=== PATIENT | female | born 1940 | race Two or more races ===

== ENCOUNTER 2022-08-21 11:13 | Inpatient (IN) | payer MEDICARE, MEDICAID ==
[~2022-08-21] VITALS: Ht 144.8 cm; Wt 63.5 kg
[2022-08-21] MEDS ORDERED: DILTIAZEM HCL 5MG/ML 5ML VIAL IV ONE (12:00)
[2022-08-21 12:26] LABS: BASOPHILS % 0.7 % (0.0-2.0); EOSINOPHILS % 1.1 % (0.0-5.0); HEMATOCRIT. 35.5 % (36.0-48.0); HEMOGLOBIN. 11.8 g/dL (12.0-16.0); LYMPHOCYTES % 12.7 % (20.0-50.0); MEAN CORPUSCULAR HEMOGLOBIN 30.3 pg (28.0-32.0); MEAN CORPUSCULAR VOLUME 91.5 fL (81.0-99.0); MEAN PLATELET VOLUME 8.6 fl (7.4-10.4); MONOCYTES % 4.5 % (2.0-8.0); PLATELET 304 x1000/uL (130-400); RED BLOOD CELL COUNT 3.88 mill/uL (4.2-5.4); RED CELL DISTRIBUTION WIDTH 13.8 % (11.6-14.6)
[2022-08-21 12:48] LABS: CHLORIDE 104 mEq/L (98-107)
[2022-08-21] MEDS ORDERED: ENOXAPARIN 80MG/0.8ML SYR SUBCUT NR (13:45)
[2022-08-21] MEDS ORDERED: ASPIRIN 325MG EC TABLET PO NR (13:45)
[2022-08-21] MEDS ORDERED: DILTIAZEM HCL 5MG/ML 5ML VIAL IV NR (13:45)
[2022-08-21] MEDS ORDERED: DILTIAZEM HCL 125 MG in DEXT 5% WATER 100 ML IV ONE (14:45)
[2022-08-21] MEDS ORDERED: DILTIAZEM HCL 125 MG in DEXT 5% WATER 100 ML IV SCH (16:30)
[2022-08-21] MEDS ORDERED: ZOLPIDEM TARTRATE 5MG TABLET PO PRN (22:45)
[2022-08-21] MEDS ORDERED: ONDANSETRON HCL 4MG/2ML INJ IV PRN (22:45)
[2022-08-21] MEDS ORDERED: ACETAMINOPHEN 325MG TABLET PO PRN (22:45)
[2022-08-21] MEDS ORDERED: MAGNESIUM/ALUMINUM HYDROXIDE/SIMETHICONE 30ML UDC PO PRN (22:45)
[2022-08-21] MEDS ORDERED: DEXTROSE 50% WATER 50ML SYRINGE IV PRN (22:45)
[2022-08-21 23:00] VITALS: BP_SYST 180; BP_SYST 183; BP_DIAS 79; BP_DIAS 80
[2022-08-21 23:15] VITALS: BP 180/80
[2022-08-21 23:30] VITALS: BP 182/74
[2022-08-21] MEDS: CLONIDINE 0.1MG TABLET PO PRN (23:39)
[2022-08-21 23:40] LABS: PROTHROMBIN TIME 10.9 sec (9.6-11.0)
[2022-08-21 23:45] VITALS: BP 209/95
[2022-08-22] VITALS (92 sets, daily range): BP systolic 116–186; BP diastolic 41–142
[2022-08-22] MEDS ORDERED: CHOL2000 (00:11)
[2022-08-22] MEDS ORDERED: ATOR40TA70 MT (00:11)
[2022-08-22] MEDS ORDERED: OMEP20CA14 MT (00:11)
[2022-08-22] MEDS ORDERED: METF-873 MT (00:11)
[2022-08-22] MEDS ORDERED: LEVO112T7 MT (00:11)
[2022-08-22] MEDS ORDERED: LOSA100T32 MT (00:11)
[2022-08-22] MEDS ORDERED: HYDR100T26 MT (00:11)
[2022-08-22] MEDS ORDERED: AMLO5TAB88 MT (00:11)
[2022-08-22] MEDS ORDERED: GLIP5TAB12 MT (00:11)
[2022-08-22] MEDS ORDERED: CYAN-33 MT (00:11)
[2022-08-22 01:03] LABS: *AMPHETAMINES SCREEN URINE NEGATIVE (NEGATIVE); *BARBITURATES SCREEN URINE NEGATIVE (NEGATIVE); *BENZODIAZEPINES SCREEN URINE NEGATIVE (NEGATIVE); *COCAINE SCREEN URINE NEGATIVE (NEGATIVE); CANNABINOID URINE SCREEN NEGATIVE (NEGATIVE); METHADONE URINE SCREEN NEGATIVE (NEGATIVE); OPIATES URINE SCREEN NEGATIVE (NEGATIVE); PHENCYCLIDINE URINE SCREEN NEGATIVE (NEGATIVE)
[2022-08-22] MEDS: DILTIAZEM HCL 90MG TABLET PO SCH ×2 (05:08→13:31)
[2022-08-22] MEDS: SODIUM CHLORIDE 0.9% INJ 3ML FLUSH IVF SCH ×3 (05:08→22:25)
[2022-08-22 05:46] LABS: BASOPHILS % 1.3 % (0.0-2.0); EOSINOPHILS % 2.9 % (0.0-5.0); HEMATOCRIT. 26.6 % (36.0-48.0); HEMOGLOBIN. 9.1 g/dL (12.0-16.0); LYMPHOCYTES % 31.8 % (20.0-50.0); MEAN CORPUSCULAR HEMOGLOBIN 30.9 pg (28.0-32.0); MEAN CORPUSCULAR VOLUME 90.3 fL (81.0-99.0); MEAN PLATELET VOLUME 8.7 fl (7.4-10.4); MONOCYTES % 6.8 % (2.0-8.0); NEUTROPHILS % 57.2 % (40.0-76.0); PLATELET 237 x1000/uL (130-400); RED BLOOD CELL COUNT 2.94 mill/uL (4.2-5.4); RED CELL DISTRIBUTION WIDTH 13.8 % (11.6-14.6)
[2022-08-22 05:58] LABS: INR 1.1; PROTHROMBIN TIME 11.5 sec (9.6-11.0)
[2022-08-22] MEDS: CLONIDINE 0.1MG TABLET PO PRN ×2 (05:59→18:40)
[2022-08-22] MEDS ORDERED: ENOXAPARIN 60MG/0.6ML SYR SUBCUT SCH (06:00)
[2022-08-22] MEDS ORDERED: IOHEXOL-350 100 ML BOTTLE ONE (06:22)
[2022-08-22] MEDS: BLOOD SUGAR DIAGNOSTIC STRIP TEST SCH ×4 (07:49→21:38)
[2022-08-22] MEDS: INSULIN LISPRO 100 UNITS/ML SUBCUT SCH ×4 (07:49→21:56)
[2022-08-22] MEDS ORDERED: LEVOTHYROXINE SODIUM 100MCG TABLET PO SCH (07:50)
[2022-08-22 08:44] LABS: T4 FREE 1.04 ng/dL (0.76-1.46)
[2022-08-22] MEDS: LOSARTAN POTASSIUM 100 MG TABLET PO SCH (15:09)
[2022-08-22 15:59] LABS: CREATINE KINASE MB FRACTION 3.1 ng/mL (0.5-3.6)
[2022-08-22] MEDS: HYDRALAZINE HCL 10MG TABLET PO PRN ×2 (16:26→19:49)
[2022-08-22] MEDS: OMEPRAZOLE 20MG CAPSULE EXTENDED RELEASE PO SCH (21:53)
[2022-08-22] MEDS: HYDRALAZINE HCL 100MG TABLET PO SCH (21:54)
[2022-08-22] MEDS: ATORVASTATIN CALCIUM 40MG TABLET PO SCH (21:55)
[2022-08-22] MEDS: DILTIAZEM HCL 60MG TABLET PO SCH (22:00)
[2022-08-23] VITALS (59 sets, daily range): BP systolic 81–205; BP diastolic 35–123
[2022-08-23 00:07] LABS: CREATINE KINASE MB FRACTION 2.4 ng/mL (0.5-3.6)
[2022-08-23] MEDS: HYDRALAZINE HCL 100MG TABLET PO SCH ×3 (05:40→21:21)
[2022-08-23] MEDS: SODIUM CHLORIDE 0.9% INJ 3ML FLUSH IVF SCH ×3 (05:43→21:14)
[2022-08-23] MEDS: DILTIAZEM HCL 60MG TABLET PO SCH ×3 (05:43→22:00)
[2022-08-23 05:46] LABS: CREATINE KINASE MB FRACTION 1.9 ng/mL (0.5-3.6)
[2022-08-23] MEDS: ENOXAPARIN 60MG/0.6ML SYR SUBCUT SCH (05:47)
[2022-08-23] MEDS: LEVOTHYROXINE SODIUM 125MCG TABLET PO SCH (07:50)
[2022-08-23] MEDS: BLOOD SUGAR DIAGNOSTIC STRIP TEST SCH ×4 (08:01→21:00)
[2022-08-23] MEDS: INSULIN LISPRO 100 UNITS/ML SUBCUT SCH ×4 (08:01→21:20)
[2022-08-23] MEDS: OMEPRAZOLE 20MG CAPSULE EXTENDED RELEASE PO SCH ×2 (08:31→21:20)
[2022-08-23] MEDS: LOSARTAN POTASSIUM 100 MG TABLET PO SCH (08:31)
[2022-08-23] MEDS: HYDRALAZINE HCL 10MG TABLET PO PRN ×2 (08:32→18:34)
[2022-08-23] MEDS ORDERED: LIDOCAINE HCL 1% 20ML VIAL (Pyxis) INJ ONE ×3 (08:43→10:18)
[2022-08-23] MEDS ORDERED: IODIXANOL 320MG/ML 100 ML BOTTLE IV ONE (08:43)
[2022-08-23] MEDS ORDERED: HEPARIN 1000 UNITS/ML 10ML ONE (08:43)
[2022-08-23] MEDS ORDERED: LIDOCAINE HCL/PF 1% 10 MG/ML 5ML VIAL ONE (08:46)
[2022-08-23] MEDS ORDERED: FENTANYL CITRATE/PF 50MCG/ML 2ML VIAL ONE (09:03)
[2022-08-23] MEDS ORDERED: MIDAZOLAM HCL 2 MG/2 ML VIAL ONE (09:03)
[2022-08-23] MEDS ORDERED: HYDRALAZINE 20MG/ML VIAL ONE (09:55)
[2022-08-23] MEDS ORDERED: ATROPINE SULFATE 1MG/10ML SYR IV PRN (11:15)
[2022-08-23] MEDS: ACETAMINOPHEN 325MG TABLET PO PRN (13:14)
[2022-08-23] MEDS: CLONIDINE 0.1MG TABLET PO PRN ×2 (13:14→18:34)
[2022-08-23] MEDS: NITROGLYCERIN 50MG PREMIX 250 ML IV PRN (15:06)
[2022-08-23] MEDS ORDERED: ACETAMINOPHEN 325MG TABLET PO PRN (18:45)
[2022-08-23] MEDS: ATORVASTATIN CALCIUM 40MG TABLET PO SCH (21:21)
[2022-08-24] VITALS (98 sets, daily range): BP systolic 102–199; BP diastolic 23–124
[2022-08-24] MEDS: SODIUM CHLORIDE 0.9% INJ 3ML FLUSH IVF SCH ×3 (05:42→22:00)
[2022-08-24] MEDS: DILTIAZEM HCL 60MG TABLET PO SCH ×3 (05:42→22:00)
[2022-08-24] MEDS: HYDRALAZINE HCL 100MG TABLET PO SCH ×3 (05:46→22:23)
[2022-08-24] MEDS: ENOXAPARIN 60MG/0.6ML SYR SUBCUT SCH (05:47)
[2022-08-24 06:40] LABS: BASOPHILS % 0.3 % (0.0-2.0); EOSINOPHILS % 1.3 % (0.0-5.0); HEMATOCRIT. 29.5 % (36.0-48.0); HEMOGLOBIN. 10.2 g/dL (12.0-16.0); LYMPHOCYTES % 17.9 % (20.0-50.0); MEAN CORPUSCULAR HEMOGLOBIN 31.3 pg (28.0-32.0); MEAN CORPUSCULAR VOLUME 90.7 fL (81.0-99.0); MEAN PLATELET VOLUME 8.8 fl (7.4-10.4); MONOCYTES % 5.8 % (2.0-8.0); NEUTROPHILS % 74.7 % (40.0-76.0); PLATELET 253 x1000/uL (130-400); RED BLOOD CELL COUNT 3.25 mill/uL (4.2-5.4); RED CELL DISTRIBUTION WIDTH 13.7 % (11.6-14.6)
[2022-08-24] MEDS: BLOOD SUGAR DIAGNOSTIC STRIP TEST SCH ×4 (07:42→20:41)
[2022-08-24] MEDS: INSULIN LISPRO 100 UNITS/ML SUBCUT SCH ×4 (08:20→20:41)
[2022-08-24] MEDS: LEVOTHYROXINE SODIUM 125MCG TABLET PO SCH (09:02)
[2022-08-24] MEDS: LOSARTAN POTASSIUM 100 MG TABLET PO SCH (09:02)
[2022-08-24] MEDS: OMEPRAZOLE 20MG CAPSULE EXTENDED RELEASE PO SCH ×2 (09:04→20:38)
[2022-08-24] MEDS: CLONIDINE 0.1MG TABLET PO SCH ×2 (09:48→20:39)
[2022-08-24] MEDS: ATORVASTATIN CALCIUM 40MG TABLET PO SCH (20:39)
[2022-08-25] VITALS (81 sets, daily range): BP systolic 70–185; BP diastolic 18–145
[2022-08-25] MEDS: SODIUM CHLORIDE 0.9% INJ 3ML FLUSH IVF SCH ×3 (05:02→22:17)
[2022-08-25] MEDS: HYDRALAZINE HCL 100MG TABLET PO SCH ×3 (05:06→22:15)
[2022-08-25] MEDS: ENOXAPARIN 60MG/0.6ML SYR SUBCUT SCH (05:06)
[2022-08-25] MEDS: DILTIAZEM HCL 60MG TABLET PO SCH ×3 (05:09→22:00)
[2022-08-25] MEDS: ACETAMINOPHEN 325MG TABLET PO PRN (05:09)
[2022-08-25 05:58] LABS: BASOPHILS % 0.5 % (0.0-2.0); HEMATOCRIT. 29.4 % (36.0-48.0); HEMOGLOBIN. 10.2 g/dL (12.0-16.0); MEAN CORPUSCULAR HEMOGLOBIN 31.4 pg (28.0-32.0); MEAN CORPUSCULAR VOLUME 90.4 fL (81.0-99.0); MEAN PLATELET VOLUME 8.9 fl (7.4-10.4); MONOCYTES % 6.4 % (2.0-8.0); NEUTROPHILS % 67.1 % (40.0-76.0); PLATELET 212 x1000/uL (130-400); RED BLOOD CELL COUNT 3.25 mill/uL (4.2-5.4); RED CELL DISTRIBUTION WIDTH 13.7 % (11.6-14.6)
[2022-08-25] MEDS: LEVOTHYROXINE SODIUM 125MCG TABLET PO SCH (08:27)
[2022-08-25] MEDS: OMEPRAZOLE 20MG CAPSULE EXTENDED RELEASE PO SCH ×2 (08:27→22:11)
[2022-08-25] MEDS: CLONIDINE 0.1MG TABLET PO SCH ×3 (08:28→18:28)
[2022-08-25] MEDS: LOSARTAN POTASSIUM 100 MG TABLET PO SCH (08:28)
[2022-08-25] MEDS ORDERED: FUROSEMIDE 40MG/4ML VIAL IVP NR (08:45)
[2022-08-25] MEDS ORDERED: MAGNESIUM 4 G PREMIX 100 ML IV ONE (10:00)
[2022-08-25] MEDS: BLOOD SUGAR DIAGNOSTIC STRIP TEST SCH ×3 (11:39→23:45)
[2022-08-25] MEDS: INSULIN LISPRO 100 UNITS/ML SUBCUT SCH ×2 (11:49→18:29)
[2022-08-25] MEDS ORDERED: EPOETIN ALFA-EPBX 10,000 UNIT/ML VIAL SUBCUT NR (21:00)
[2022-08-25] MEDS: NITROGLYCERIN 50MG PREMIX 250 ML IV PRN (21:04)
[2022-08-25] MEDS: ATORVASTATIN CALCIUM 40MG TABLET PO SCH (22:11)
[2022-08-26] VITALS (97 sets, daily range): BP systolic 109–204; BP diastolic 39–110
[2022-08-26] MEDS: INSULIN LISPRO 100 UNITS/ML SUBCUT SCH ×4 (00:13→17:18)
[2022-08-26] MEDS: BLOOD SUGAR DIAGNOSTIC STRIP TEST SCH ×4 (05:45→23:45)
[2022-08-26] MEDS: SODIUM CHLORIDE 0.9% INJ 3ML FLUSH IVF SCH ×3 (06:00→22:00)
[2022-08-26] MEDS: DILTIAZEM HCL 60MG TABLET PO SCH ×3 (06:00→22:00)
[2022-08-26] MEDS: HYDRALAZINE HCL 100MG TABLET PO SCH ×3 (06:32→20:55)
[2022-08-26] MEDS: ENOXAPARIN 60MG/0.6ML SYR SUBCUT SCH (06:35)
[2022-08-26] MEDS: CLONIDINE 0.1MG TABLET PO SCH ×3 (08:44→17:22)
[2022-08-26] MEDS: OMEPRAZOLE 20MG CAPSULE EXTENDED RELEASE PO SCH ×2 (08:44→20:55)
[2022-08-26] MEDS: LEVOTHYROXINE SODIUM 125MCG TABLET PO SCH (08:44)
[2022-08-26] MEDS ORDERED: LOSARTAN POTASSIUM 50 MG TABLET PO SCH (09:00)
[2022-08-26] MEDS: ACETAMINOPHEN 325MG TABLET PO PRN (20:54)
[2022-08-26] MEDS: ATORVASTATIN CALCIUM 40MG TABLET PO SCH (20:54)
[2022-08-26] MEDS: DIPHENHYDRAMINE 50MG/ML VIAL IV PRN (20:55)
[2022-08-27] VITALS (72 sets, daily range): BP systolic 126–194; BP diastolic 48–93
[2022-08-27] MEDS: INSULIN LISPRO 100 UNITS/ML SUBCUT SCH ×5 (00:02→23:56)
[2022-08-27] MEDS: BLOOD SUGAR DIAGNOSTIC STRIP TEST SCH ×4 (05:45→23:53)
[2022-08-27] MEDS: SODIUM CHLORIDE 0.9% INJ 3ML FLUSH IVF SCH ×3 (06:00→22:24)
[2022-08-27] MEDS: DILTIAZEM HCL 60MG TABLET PO SCH (06:00)
[2022-08-27] MEDS: HYDRALAZINE HCL 100MG TABLET PO SCH ×3 (06:59→22:24)
[2022-08-27] MEDS: LEVOTHYROXINE SODIUM 125MCG TABLET PO SCH (08:36)
[2022-08-27] MEDS: OMEPRAZOLE 20MG CAPSULE EXTENDED RELEASE PO SCH ×2 (08:36→20:09)
[2022-08-27] MEDS: CLONIDINE 0.1MG TABLET PO SCH (08:39)
[2022-08-27] MEDS ORDERED: FUROSEMIDE 40MG/4ML VIAL IVP NR (14:00)
[2022-08-27] MEDS: GUAIFENESIN-DM 200MG-20MG/10ML UDC PO PRN (16:10)
[2022-08-27] MEDS: LIDOCAINE 5% PATCH TOP SCH (16:11)
[2022-08-27] MEDS: HYDRALAZINE HCL 10MG TABLET PO PRN (17:51)
[2022-08-27] MEDS ORDERED: METOPROLOL TARTRATE 5MG/5ML VIAL IV NR ×2 (20:00→20:15)
[2022-08-27] MEDS: ATORVASTATIN CALCIUM 40MG TABLET PO SCH (20:09)
[2022-08-27] MEDS: ALLOPURINOL 300 MG TABLET PO SCH (20:09)
[2022-08-27] MEDS ORDERED: AMIODARONE HCL 900 MG in DEXT 5% WATER 482 ML IV PRN (20:15)
[2022-08-27] MEDS ORDERED: ASCORBIC ACID 500 MG TABLET PO SCH (21:00)
[2022-08-27] MEDS ORDERED: DIPHENHYDRAMINE 25MG CAPSULE PO PRN (21:00)
[2022-08-27] MEDS ORDERED: CHLORHEXIDINE GLUCONATE 4% EXTERNAL USE TOP SCH (21:00)
[2022-08-27] MEDS ORDERED: BISACODYL 10MG SUPP PR PRN (21:00)
[2022-08-27] MEDS ORDERED: DOCUSATE SODIUM 100MG CAPSULE PO SCH (21:00)
[2022-08-28] VITALS (48 sets, daily range): BP systolic 122–203; BP diastolic 45–89
[2022-08-28] MEDS: CLONIDINE 0.1MG TABLET PO PRN (03:44)
[2022-08-28] MEDS: INSULIN LISPRO 100 UNITS/ML SUBCUT SCH ×3 (06:00→17:01)
[2022-08-28] MEDS: BLOOD SUGAR DIAGNOSTIC STRIP TEST SCH ×4 (06:09→23:56)
[2022-08-28 06:10] LABS: BASOPHILS % 0.6 % (0.0-2.0); EOSINOPHILS % 3.3 % (0.0-5.0); HEMATOCRIT. 36.4 % (36.0-48.0); HEMOGLOBIN. 12.4 g/dL (12.0-16.0); LYMPHOCYTES % 23.5 % (20.0-50.0); MEAN CORPUSCULAR HEMOGLOBIN 30.9 pg (28.0-32.0); MEAN CORPUSCULAR VOLUME 90.8 fL (81.0-99.0); MEAN PLATELET VOLUME 9.1 fl (7.4-10.4); MONOCYTES % 6.7 % (2.0-8.0); NEUTROPHILS % 65.9 % (40.0-76.0); PLATELET 203 x1000/uL (130-400); RED BLOOD CELL COUNT 4.01 mill/uL (4.2-5.4); RED CELL DISTRIBUTION WIDTH 14.6 % (11.6-14.6)
[2022-08-28] MEDS: CHLORHEXIDINE GLUCONATE 4% EXTERNAL USE TOP SCH ×2 (06:11→08:24)
[2022-08-28] MEDS: ALLOPURINOL 300 MG TABLET PO SCH (06:11)
[2022-08-28] MEDS: SODIUM CHLORIDE 0.9% INJ 3ML FLUSH IVF SCH ×3 (06:12→21:06)
[2022-08-28] MEDS: HYDRALAZINE HCL 10MG TABLET PO PRN (06:17)
[2022-08-28] MEDS: LEVOTHYROXINE SODIUM 125MCG TABLET PO SCH (07:33)
[2022-08-28] MEDS: OMEPRAZOLE 20MG CAPSULE EXTENDED RELEASE PO SCH ×2 (07:33→21:05)
[2022-08-28] MEDS: HYDRALAZINE HCL 100MG TABLET PO SCH ×3 (08:40→16:44)
[2022-08-28] MEDS: CLONIDINE 0.1MG TABLET PO SCH ×3 (08:40→16:45)
[2022-08-28] MEDS: LIDOCAINE 5% PATCH TOP SCH (08:41)
[2022-08-28] MEDS ORDERED: FENTANYL CITRATE/PF 50MCG/ML 2ML VIAL ONE (13:51)
[2022-08-28] MEDS ORDERED: LIDOCAINE HCL/PF 1% 10 MG/ML 5ML VIAL ONE (13:51)
[2022-08-28] MEDS ORDERED: MIDAZOLAM HCL 2 MG/2 ML VIAL ONE (13:51)
[2022-08-28] MEDS ORDERED: HEPARIN 1000 UNITS/ML 10ML ONE (13:51)
[2022-08-28] MEDS ORDERED: IODIXANOL 320MG/ML 100 ML BOTTLE IV ONE (14:22)
[2022-08-28] MEDS ORDERED: HYDRALAZINE 20MG/ML VIAL ONE (15:12)
[2022-08-28] MEDS ORDERED: AMIODARONE HCL 50MG/ML 3ML VIAL IV ONE (15:46)
[2022-08-28] MEDS ORDERED: CLOPIDOGREL 75MG TABLET ONE (15:59)
[2022-08-28] MEDS ORDERED: SODIUM CHLORIDE 0.45% 1,000 ML IV SCH (16:15)
[2022-08-28] MEDS: ACETAMINOPHEN 325MG TABLET PO PRN (16:57)
[2022-08-28] MEDS: ATORVASTATIN CALCIUM 40MG TABLET PO SCH (21:06)
[2022-08-29] VITALS (28 sets, daily range): BP systolic 94–190; BP diastolic 39–124
[2022-08-29] MEDS: HYDRALAZINE HCL 10MG TABLET PO PRN (00:32)
[2022-08-29] MEDS: CLONIDINE 0.1MG TABLET PO PRN (03:39)
[2022-08-29] MEDS: SODIUM CHLORIDE 0.9% INJ 3ML FLUSH IVF SCH ×3 (05:43→22:01)
[2022-08-29] MEDS: INSULIN LISPRO 100 UNITS/ML SUBCUT SCH ×5 (05:43→17:21)
[2022-08-29] MEDS: BLOOD SUGAR DIAGNOSTIC STRIP TEST SCH ×3 (05:43→17:04)
[2022-08-29] MEDS: CLONIDINE 0.1MG TABLET PO SCH ×3 (09:16→22:00)
[2022-08-29] MEDS: LIDOCAINE 5% PATCH TOP SCH (09:16)
[2022-08-29] MEDS: OMEPRAZOLE 20MG CAPSULE EXTENDED RELEASE PO SCH ×2 (09:17→22:00)
[2022-08-29] MEDS: LEVOTHYROXINE SODIUM 125MCG TABLET PO SCH (09:17)
[2022-08-29] MEDS: ACETAMINOPHEN 325MG TABLET PO PRN ×2 (09:17→22:03)
[2022-08-29] MEDS: CLOPIDOGREL 75MG TABLET PO SCH (09:18)
[2022-08-29] MEDS: HYDRALAZINE HCL 100MG TABLET PO SCH ×3 (09:18→22:00)
[2022-08-29] MEDS: NIFEDIPINE XL 90MG TAB PO SCH (10:15)
[2022-08-29] MEDS ORDERED: HYDRALAZINE HCL 10MG TABLET PO PRN (11:30)
[2022-08-29] MEDS: NITROGLYCERIN 0.4MG TABLET SL SL PRN ×2 (12:29→12:37)
[2022-08-29] MEDS ORDERED: METOPROLOL TARTRATE 5MG/5ML VIAL IV SCH (12:30)
[2022-08-29] MEDS: APIXABAN 2.5 MG TABLET PO SCH (17:20)
[2022-08-29] MEDS: GUAIFENESIN-DM 200MG-20MG/10ML UDC PO PRN (17:20)
[2022-08-29] MEDS ORDERED: AMIODARONE HCL 200 MG TABLET PO SCH (21:30)
[2022-08-29] MEDS: ATORVASTATIN CALCIUM 40MG TABLET PO SCH (21:59)
[2022-08-30] VITALS (11 sets, daily range): BP systolic 95–185; BP diastolic 49–79
[2022-08-30] MEDS: BLOOD SUGAR DIAGNOSTIC STRIP TEST SCH ×4 (00:29→18:27)
[2022-08-30] MEDS: INSULIN LISPRO 100 UNITS/ML SUBCUT SCH ×4 (00:29→18:42)
[2022-08-30] MEDS ORDERED: HYDROCODONE/ACETAMINOPHEN 10/325MG TABLET PO PRN (01:15)
[2022-08-30] MEDS ORDERED: NALOXONE HCL 0.4MG/ML VIAL IV PRN (01:15)
[2022-08-30] MEDS: HYDRALAZINE HCL 100MG TABLET PO SCH ×4 (07:41→21:24)
[2022-08-30] MEDS: OMEPRAZOLE 20MG CAPSULE EXTENDED RELEASE PO SCH ×2 (07:42→21:23)
[2022-08-30] MEDS: CLONIDINE 0.1MG TABLET PO SCH ×4 (07:42→21:27)
[2022-08-30] MEDS ORDERED: METOPROLOL TARTRATE 5MG/5ML VIAL IV SCH (08:00)
[2022-08-30] MEDS ORDERED: DIGOXIN 500MCG/2ML AMP IV SCH (08:00)
[2022-08-30] MEDS: LEVOTHYROXINE SODIUM 125MCG TABLET PO SCH (08:02)
[2022-08-30] MEDS: SODIUM CHLORIDE 0.9% INJ 3ML FLUSH IVF SCH ×3 (08:10→21:24)
[2022-08-30] MEDS: CLOPIDOGREL 75MG TABLET PO SCH (08:29)
[2022-08-30] MEDS: APIXABAN 2.5 MG TABLET PO SCH ×2 (08:29→18:36)
[2022-08-30] MEDS: NIFEDIPINE XL 90MG TAB PO SCH (09:00)
[2022-08-30] MEDS: AMIODARONE HCL 900 MG in DEXT 5% WATER 500 ML IV SCH (10:54)
[2022-08-30] MEDS: CLONIDINE 0.1MG TABLET PO PRN (18:43)
[2022-08-30] MEDS: ATORVASTATIN CALCIUM 40MG TABLET PO SCH (21:24)
[2022-08-30] MEDS: ACETAMINOPHEN 325MG TABLET PO PRN (22:00)
[2022-08-31] VITALS (9 sets, daily range): BP systolic 116–193; BP diastolic 63–97
[2022-08-31] MEDS: INSULIN LISPRO 100 UNITS/ML SUBCUT SCH ×4 (01:04→17:58)
[2022-08-31] MEDS: CLONIDINE 0.1MG TABLET PO PRN ×2 (01:08→10:02)
[2022-08-31] MEDS: HYDRALAZINE HCL 100MG TABLET PO SCH ×4 (05:34→22:26)
[2022-08-31] MEDS: SODIUM CHLORIDE 0.9% INJ 3ML FLUSH IVF SCH ×3 (05:34→22:00)
[2022-08-31] MEDS: CLONIDINE 0.1MG TABLET PO SCH ×4 (05:34→22:27)
[2022-08-31] MEDS: BLOOD SUGAR DIAGNOSTIC STRIP TEST SCH ×4 (05:34→17:58)
[2022-08-31] MEDS: LEVOTHYROXINE SODIUM 125MCG TABLET PO SCH (05:59)
[2022-08-31] MEDS: OMEPRAZOLE 20MG CAPSULE EXTENDED RELEASE PO SCH ×3 (05:59→22:04)
[2022-08-31] MEDS: AMIODARONE HCL 900 MG in DEXT 5% WATER 500 ML IV SCH (06:52)
[2022-08-31] MEDS: NIFEDIPINE XL 90MG TAB PO SCH (08:27)
[2022-08-31] MEDS: LIDOCAINE 5% PATCH TOP SCH ×2 (08:28→08:34)
[2022-08-31] MEDS: APIXABAN 2.5 MG TABLET PO SCH ×2 (08:32→17:56)
[2022-08-31] MEDS: CLOPIDOGREL 75MG TABLET PO SCH (08:32)
[2022-08-31] MEDS: AMIODARONE HCL 200 MG TABLET PO SCH ×2 (21:00→22:03)
[2022-08-31] MEDS: ATORVASTATIN CALCIUM 40MG TABLET PO SCH ×2 (21:00→22:04)
[2022-08-31] MEDS: DIPHENHYDRAMINE 50MG/ML VIAL IV PRN (22:26)
[2022-08-31] MEDS ORDERED: LORAZEPAM 2MG/ML CPJ IV PRN (23:00)
[2022-08-31] MEDS ORDERED: AMIODARONE HCL 900 MG in DEXT 5% WATER 482 ML IV PRN (23:15)
[2022-09-01] VITALS (11 sets, daily range): BP systolic 142–175; BP diastolic 63–117
[2022-09-01] MEDS: CLONIDINE 0.1MG TABLET PO SCH ×3 (06:00→22:21)
[2022-09-01] MEDS: INSULIN LISPRO 100 UNITS/ML SUBCUT SCH ×5 (06:00→23:26)
[2022-09-01] MEDS: SODIUM CHLORIDE 0.9% INJ 3ML FLUSH IVF SCH ×3 (06:00→22:21)
[2022-09-01] MEDS: HYDRALAZINE HCL 100MG TABLET PO SCH ×3 (06:00→22:21)
[2022-09-01] MEDS: BLOOD SUGAR DIAGNOSTIC STRIP TEST SCH ×4 (06:00→18:06)
[2022-09-01] MEDS ORDERED: HYDRALAZINE 20MG/ML VIAL IV PRN (07:15)
[2022-09-01] MEDS: AMIODARONE HCL 200 MG TABLET PO SCH ×2 (09:00→21:00)
[2022-09-01] MEDS: LEVOTHYROXINE SODIUM 125MCG TABLET PO SCH (09:40)
[2022-09-01] MEDS: CLOPIDOGREL 75MG TABLET PO SCH (09:40)
[2022-09-01] MEDS: APIXABAN 2.5 MG TABLET PO SCH ×2 (09:47→18:19)
[2022-09-01] MEDS: OMEPRAZOLE 20MG CAPSULE EXTENDED RELEASE PO SCH ×2 (09:47→22:06)
[2022-09-01] MEDS: NIFEDIPINE XL 90MG TAB PO SCH (09:47)
[2022-09-01] MEDS: LIDOCAINE 5% PATCH TOP SCH (09:48)
[2022-09-01] MEDS: ATORVASTATIN CALCIUM 40MG TABLET PO SCH (22:05)
[2022-09-02] VITALS (10 sets, daily range): BP systolic 133–174; BP diastolic 53–75
[2022-09-02] MEDS: ACETAMINOPHEN 325MG TABLET PO PRN (03:18)
[2022-09-02] MEDS: SODIUM CHLORIDE 0.9% INJ 3ML FLUSH IVF SCH ×2 (05:05→14:00)
[2022-09-02] MEDS: CLONIDINE 0.1MG TABLET PO SCH ×2 (05:24→16:41)
[2022-09-02] MEDS: HYDRALAZINE HCL 100MG TABLET PO SCH ×2 (05:24→16:41)
[2022-09-02] MEDS: INSULIN LISPRO 100 UNITS/ML SUBCUT SCH ×3 (05:31→18:42)
[2022-09-02] MEDS: BLOOD SUGAR DIAGNOSTIC STRIP TEST SCH ×4 (05:31→18:24)
[2022-09-02] MEDS: LEVOTHYROXINE SODIUM 125MCG TABLET PO SCH (07:30)
[2022-09-02] MEDS: CLOPIDOGREL 75MG TABLET PO SCH (09:00)
[2022-09-02] MEDS: APIXABAN 2.5 MG TABLET PO SCH ×2 (09:00→16:40)
[2022-09-02] MEDS: NIFEDIPINE XL 90MG TAB PO SCH (09:00)
[2022-09-02] MEDS: LIDOCAINE 5% PATCH TOP SCH (10:11)
[2022-09-02] MEDS: OMEPRAZOLE 20MG CAPSULE EXTENDED RELEASE PO SCH (10:11)
[2022-09-02] MEDS: AMIODARONE HCL 200 MG TABLET PO SCH (10:14)
[2022-09-02 12:27] LABS: CLARITY URINE TURBID (CLEAR); COLOR URINE YELLOW (YELLOW); KETONES URINE 1+ (NEGATIVE); LEUKOCYTE ESTERASE URINE 3+ (NEGATIVE); NITRITE URINE NEGATIVE (NEGATIVE); OCCULT BLOOD URINE NEGATIVE (NEGATIVE); PH URINE 5.5 (4.5-8.0); PROTEIN URINE 4+ (NEGATIVE); SPECIFIC GRAVITY URINE 1.018 (1.005-1.030)
[2022-09-02 16:10] LABS: BASOPHILS % 0.7 % (0.0-2.0); EOSINOPHILS % 2.3 % (0.0-5.0); HEMATOCRIT. 36.1 % (36.0-48.0); HEMOGLOBIN. 12.2 g/dL (12.0-16.0); LYMPHOCYTES % 10.3 % (20.0-50.0); MEAN CORPUSCULAR HEMOGLOBIN 30.7 pg (28.0-32.0); MEAN CORPUSCULAR VOLUME 90.5 fL (81.0-99.0); MONOCYTES % 5.1 % (2.0-8.0); NEUTROPHILS % 81.6 % (40.0-76.0); PLATELET 312 x1000/uL (130-400); RED BLOOD CELL COUNT 3.98 mill/uL (4.2-5.4); RED CELL DISTRIBUTION WIDTH 14.5 % (11.6-14.6)
[2022-09-02 16:12] LABS: CHLORIDE 97 mEq/L (98-107)
[2022-09-02] MEDS ORDERED: AMIODARONE HCL 200 MG TABLET PO SCH (16:15)
== END 2022-09-02 20:06 | disposition short-term general hospital (02) | DRG 174 ==
LOC: ER 11:13 → EDBEDREQ 15:38 → EDBEDREQTM 15:38 → EDBEDREQSVC 15:38 → CANRESERV 20:52 → ENRESERV 20:52 → CVICU 23:21 → 5EST 08-29 11:58 → 3WST 08-29 18:17 → 5EST 08-30 10:15
PROVIDERS: ADMIT Internal Medicine; ATTEND Internal Medicine
PROC: B2151ZZ Fluoroscopy of Left Heart using Low Osmolar Contrast (ICD-10-PCS; 2022-08-23)
PROC: 4A023N7 Measurement of Cardiac Sampling and Pressure, Left Heart, Percutaneous Approach (ICD-10-PCS; 2022-08-23)
PROC: B2111ZZ Fluoroscopy of Multiple Coronary Arteries using Low Osmolar Contrast (ICD-10-PCS; 2022-08-23)
PROC: 30233N1 Transfusion of Nonautologous Red Blood Cells into Peripheral Vein, Percutaneous Approach (ICD-10-PCS; 2022-08-27)
PROC: 027034Z Dilation of Coronary Artery, One Artery with Drug-eluting Intraluminal Device, Percutaneous Approach (ICD-10-PCS; principal; 2022-08-28)
PROC: B240ZZ3 Ultrasonography of Single Coronary Artery, Intravascular (ICD-10-PCS; 2022-08-28)
PROC: B2111ZZ Fluoroscopy of Multiple Coronary Arteries using Low Osmolar Contrast (ICD-10-PCS; 2022-08-28)
PROC: 4A023N7 Measurement of Cardiac Sampling and Pressure, Left Heart, Percutaneous Approach (ICD-10-PCS; 2022-08-28)
DX: I21.4 Non-ST elevation (NSTEMI) myocardial infarction (principal); G93.40 Encephalopathy, unspecified; E03.9 Hypothyroidism, unspecified; E11.9 Type 2 diabetes mellitus without complications; I48.0 Paroxysmal atrial fibrillation; I25.10 Atherosclerotic heart disease of native coronary artery without angina pectoris; I10 Essential (primary) hypertension; Z20.822 Contact with and (suspected) exposure to COVID-19; N28.9 Disorder of kidney and ureter, unspecified; M19.90 Unspecified osteoarthritis, unspecified site; E78.00 Pure hypercholesterolemia, unspecified; F23 Brief psychotic disorder; N39.0 Urinary tract infection, site not specified; E78.5 Hyperlipidemia, unspecified; I34.0 Nonrheumatic mitral (valve) insufficiency; Z95.1 Presence of aortocoronary bypass graft; Z78.1 Physical restraint status; I67.82 Cerebral ischemia; I70.8 Atherosclerosis of other arteries
CPT/HCPCS: 36415; 71045; 71275; 80048; 80053; 80061; 80305; 81003; 82550; 82553; 82962; 83036; 83735; 83880; 84100; 84439; 84443; 84484; 85025; 85347; 85379; 86850; 86900; 86920; 87077; 87186; 87426; 87804; 92928; 92978; 92979; 93005; 93306; 93454; 93458; 93880; 93970; 99291; C1753; C1760; C1769; C1874; C1887; C1893; C9803; J0282; J0360; J0461; J0885; J1160; J1200; J1644; J1650; J1815; J1940; J2060; J2250; J3010; J3475; J3490; J7060; P9016; Q9967; C1761